=== PATIENT | male | born 1945 | race Two or more races ===

== ENCOUNTER 2025-02-22 16:16 | Inpatient (IN) | payer OTHER ==
[~2025-02-22] VITALS: Ht 182.9 cm; Wt 101.2 kg
[2025-02-22] MEDS: IV NS 0.9% 1,000 ML BAG IV ONE ×2 (17:00→18:20)
[2025-02-22 17:09] LABS: SERUM AMMONIA 94 umol/L (11-32)
[2025-02-22 17:21] LABS: LACTIC ACID 2.3 mmol/L (0.4-2.0)
[2025-02-22 17:22] LABS: ALANINE AMINOTRANSFERASE 14 U/L (12-78); ALBUMIN 3.2 g/dL (3.4-5.0); ALCOHOL, BLOOD < 3 mg/dL (0-10); ALKALINE PHOSPHATASE 98 U/L (46-116); ASPARTATE AMINOTRANSFERASE 8 U/L (15-37); BASOPHILS % (AUTO) 0.2 % (0.0-2.0); BILIRUBIN,DIRECT 0.2 mg/dL (0.0-0.2); BILIRUBIN,TOTAL 0.5 mg/dL (0.2-1.0); CALCIUM, SERUM 7.8 mg/dL (8.5-10.1); CHLORIDE 91 mmol/L (98-107); EOSINOPHILS % (AUTO) 0.3 % (0.0-6.0); GLUCOSE 199 mg/dL (74-106); HEMATOCRIT 41 % (39-51); HEMOGLOBIN 13.6 g/dL (13.5-17.5); LYMPHOCYTES # (AUTO) 0.9 K/uL (0.8-4.8); MEAN CORPUSCULAR HEMOGLOBIN 29 PG (26.0-33.0); MEAN CORPUSCULAR HGB CONC 33 g/dl (31.0-36.0); MEAN CORPUSCULAR VOLUME 88 fL (80-96); MONOCYTES # (AUTO) 0.8 K/uL (0.1-1.30); MONOCYTES % (AUTO) 5.9 % (2.0-12.0); NEUTROPHILS # (AUTO) 11.1 K/uL (1.8-8.9); NEUTROPHILS % (AUTO) 86.6 % (43.0-81.0); PLATELET COUNT (AUTO) 243 K/uL (150-450); RED BLOOD CELL COUNT(AUTO) 4.63 MIL/uL (4.5-6.0); RED CELL DISTRIBUTION WIDTH 14.5 % (11.5-15.0); SALICYLATE 2.8 mg/dL (2.8-20.0); SODIUM SERUM 138 mmol/L (136-145); TOTAL PROTEIN, SERUM 7.5 g/dL (6.4-8.2); WHITE BLOOD COUNT (AUTO) 12.8 K/uL (4.3-11.0)
[2025-02-22 17:26] LABS: ACETAMINOPHEN 0 ug/ml (10-30)
[2025-02-22 17:28] LABS: CARBON DIOXIDE 3 mmol/L (21-32); POTASSIUM 8.6 mmol/L (3.5-5.1)
[2025-02-22 17:29] LABS: CREATININE 38.4 mg/dL (0.6-1.3); INR 1.19 (0.91-1.10); PARTIAL THROMBOPLASTIN TIME 31.9 SEC (24.3-34.3); PROTHROMBIN TIME 12.5 SECS (9.2-11.1); UREA NITROGEN, BLOOD 286 mg/dL (7-18)
[2025-02-22 17:30] LABS: APPEARANCE,URINE CLEAR (CLEAR); BILIRUBIN,URINE NEGATIVE (NEGATIVE); BLOOD, URINE 3+ Ery/uL (NEGATIVE); COLOR,URINE YELLOW (YELLOW); KETONES,URINE NEGATIVE (NEGATIVE); LEUKOCYTE ESTERASE ,URINE NEGATIVE (NEGATIVE); NITRITE, URINE NEGATIVE (NEGATIVE); PROTEIN,URINE NEGATIVE (NEGATIVE); UGLUCOSE NEGATIVE (NEGATIVE); UROBILINOGEN,URINE 0.2 EU/dL (0.2)
[2025-02-22 17:37] LABS: ADD URINE CULTURE NO; BACTERIA,URINE None seen /HPF (None Seen); RBC,URINE 51-80 /HPF (0-2); SQUAMOUS EPITHELIAL CELL,UR 0-2 /HPF (None Seen); WBC,URINE 0-2 /HPF (0-3)
[2025-02-22] MEDS ORDERED: SODIUM BICARBONATE SYR 50 MEQ/50 ML DISP.SYRIN ONE ×2 (17:44→18:19)
[2025-02-22] MEDS ORDERED: SODIUM ZIRCONIUM CYCLOSILICATE 10 GM POWD.PACK ONE (17:44)
[2025-02-22 17:49] LABS: AMPHETAMINE, URINE NEGATIVE (NEGATIVE); BARBITURATE, URINE NEGATIVE (NEGATIVE); BENZODIAZEPINE, URINE NEGATIVE (NEGATIVE); CANNABINOID, URINE NEGATIVE (NEGATIVE); COCCAINE, URINE NEGATIVE (NEGATIVE); OPIATE, URINE NEGATIVE (NEGATIVE); PHENCYCLIDINE SCREEN,URINE NEGATIVE (NEGATIVE)
[2025-02-22] MEDS: SODIUM BICARBONATE SYR 50 MEQ/50 ML DISP.SYRIN IV ONE ×2 (18:00→18:29)
[2025-02-22 18:04] LABS: ABG BASE EXCESS -21.6 mmol/L (-2.0-3.0); ABG OXYGEN SATURATION 90.6 % (94.0-98.0); ABG PCO2 19.1 mmHg (35.0-48.0); ABG PH 7.112 (7.350-7.450); ABG PO2 75.5 mmHg (83.0-108.0); ABG TOTAL HEMOGLOBIN 13.5 G/dL (13.5-17.5); COHb 0.3 % (0.5-1.5); MetHb 0.6 % (0.0-1.5); O2Hb 89.8 % (94.0-97.0); SITE, ABG LEFT RADIAL
[2025-02-22 18:12] LABS: CALCIUM, SERUM 7.7 mg/dL (8.5-10.1); CHLORIDE 94 mmol/L (98-107); GLUCOSE 206 mg/dL (74-106); SODIUM SERUM 138 mmol/L (136-145)
[2025-02-22 18:17] LABS: POTASSIUM 8.2 mmol/L (3.5-5.1)
[2025-02-22 18:18] LABS: CARBON DIOXIDE 4 mmol/L (21-32); CREATININE 36.2 mg/dL (0.6-1.3); UREA NITROGEN, BLOOD 273 mg/dL (7-18)
[2025-02-22] MEDS: SODIUM ZIRCONIUM CYCLOSILICATE 10 GM POWD.PACK PO ONE (18:20)
[2025-02-22] MEDS: CEFEPIME 1 GM in IV D5W 50 ML IV ONE (18:29)
[2025-02-22] MEDS ORDERED: CALCIUM CHLORIDE 1,000 MG/10 ML DISP.SYRIN ONE (18:34)
[2025-02-22] MEDS ORDERED: INSULIN REGULAR, HUMAN 100 UNIT/ML 10 ML VIAL ONE (18:35)
[2025-02-22] MEDS ORDERED: DEXTROSE 50%-WATER 50 ML DISP.SYRIN ONE (18:35)
[2025-02-22] MEDS: CALCIUM CHLORIDE 1,000 MG/10 ML DISP.SYRIN IV ONE (18:50)
[2025-02-22] MEDS: DEXTROSE 50%-WATER 50 ML DISP.SYRIN IV ONE (18:50)
[2025-02-22] MEDS: INSULIN REGULAR, HUMAN 100 UNIT/ML 10 ML VIAL IV ONE (18:50)
[2025-02-22 19:38] LABS: EOSINOPHILS % (MANUAL) 1 % (0-4); LYMPHOCYTES % (MANUAL) 5 % (16-48); MONOCYTES % (MANUAL) 8 % (0-11.0); NEUTROPHILS % (MANUAL) 86 (42-76); PLATELET ESTIMATE ADEQUATE
[2025-02-22 19:39] LABS: ANISOCYTOSIS 1+
[2025-02-22] MEDS ORDERED: MAG HYDROX/AL HYDROX/SIMETH 30 ML UDC PO PRN (20:30)
[2025-02-22] MEDS ORDERED: ONDANSETRON HCL/PF 4 MG/2 ML VIAL IVP PRN (20:30)
[2025-02-22] MEDS ORDERED: MAGNESIUM HYDROXIDE 30 ML UDC PO PRN (20:30)
[2025-02-22] MEDS ORDERED: LACTULOSE UDC 200 G in SODIUM CHLORIDE IRRIG SOLUTION 400 ML IR SCH (20:30)
[2025-02-22] MEDS ORDERED: ACETAMINOPHEN 325 MG TABLET PO PRN (20:30)
[2025-02-22] MEDS ORDERED: CEFEPIME 1 GM in IV D5W 50 ML IV ONE (21:00)
[2025-02-22] MEDS ORDERED: DEXTROSE 50%-WATER 50 ML DISP.SYRIN IV PRN (21:00)
[2025-02-22 21:12] VITALS: BP 109/49; O2SAT 95
[2025-02-22] MEDS: SODIUM BICARBONATE SYR 50 MEQ/50 ML DISP.SYRIN ONE (21:24)
[2025-02-22] MEDS: Sodium Bicarbonate 100 MEQ in IV D5/0.45 NACL 1,000 ML IV SCH (21:47)
[2025-02-22 22:00] VITALS: BP 125/56; O2SAT 98
[2025-02-22 22:36] LABS: CARBON DIOXIDE 11 mmol/L (21-32); CHLORIDE 109 mmol/L (98-107); GLUCOSE 130 mg/dL (74-106); MAGNESIUM 3.3 mg/dL (1.8-2.4); SODIUM SERUM 148 mmol/L (136-145)
[2025-02-22 22:44] LABS: CREATININE 24.5 mg/dL (0.6-1.3); UREA NITROGEN, BLOOD 233 mg/dL (7-18)
[2025-02-22 23:00] VITALS: BP 149/60; O2SAT 98
[2025-02-23] VITALS (26 sets, daily range): BP systolic 121–191; BP diastolic 59–90; TEMP 98–98.6; O2SAT 94–97
[2025-02-23] MEDS: BLOOD SUGAR DIAGNOSTIC 1 EACH STRIP IN SCH ×2 (00:41→17:46)
[2025-02-23] MEDS: INSULIN REGULAR, HUMAN 100 UNIT/ML 3 ML VIAL SQ PRN ×2 (00:48→17:47)
[2025-02-23] MEDS: LACTULOSE 10 G/15 ML UDC (PYXIS) PO ONE (00:52)
[2025-02-23 03:20] LABS: ABG BASE EXCESS -11.1 mmol/L (-2.0-3.0); ABG OXYGEN SATURATION 96.1 % (94.0-98.0); ABG PCO2 22.1 mmHg (35.0-48.0); ABG PH 7.356 (7.350-7.450); ABG PO2 91.9 mmHg (83.0-108.0); ABG TOTAL HEMOGLOBIN 14.4 G/dL (13.5-17.5); COHb 0.3 % (0.5-1.5); MetHb 0.3 % (0.0-1.5); O2Hb 95.5 % (94.0-97.0); SITE, ABG RIGHT RADIAL
[2025-02-23 04:45] LABS: BASOPHILS % (AUTO) 0.2 % (0.0-2.0); HEMATOCRIT 42 % (39-51); HEMOGLOBIN 14.2 g/dL (13.5-17.5); LYMPHOCYTES # (AUTO) 0.2 K/uL (0.8-4.8); MEAN CORPUSCULAR HEMOGLOBIN 29 PG (26.0-33.0); MEAN CORPUSCULAR HGB CONC 34 g/dl (31.0-36.0); MEAN CORPUSCULAR VOLUME 85 fL (80-96); MONOCYTES # (AUTO) 0.5 K/uL (0.1-1.30); MONOCYTES % (AUTO) 7.1 % (2.0-12.0); NEUTROPHILS % (AUTO) 89.7 % (43.0-81.0); PLATELET COUNT (AUTO) 186 K/uL (150-450); RED BLOOD CELL COUNT(AUTO) 4.89 MIL/uL (4.5-6.0); RED CELL DISTRIBUTION WIDTH 13.9 % (11.5-15.0); WHITE BLOOD COUNT (AUTO) 6.7 K/uL (4.3-11.0)
[2025-02-23 05:00] LABS: SERUM AMMONIA 22 umol/L (11-32)
[2025-02-23 05:04] LABS: CALCIUM, SERUM 8.6 mg/dL (8.5-10.1); CARBON DIOXIDE 14 mmol/L (21-32); CHLORIDE 115 mmol/L (98-107); GLUCOSE 186 mg/dL (74-106); MAGNESIUM 3.2 mg/dL (1.8-2.4)
[2025-02-23 05:10] LABS: CREATININE 14.8 mg/dL (0.6-1.3); PHOSPHORUS 9.6 mg/dL (2.5-4.9); SODIUM SERUM 157 mmol/L (136-145); UREA NITROGEN, BLOOD 186 mg/dL (7-18)
[2025-02-23] MEDS: IV 1/2NS 1000 ML 1,000 ML IV SCH (06:12)
[2025-02-23] MEDS: POTASSIUM CL. PREMIX PERIPHER. 50 ML IV SCH (06:13)
[2025-02-23] MEDS: IV NS 0.9% 250 ML IV PRN (06:27)
[2025-02-23] MEDS: PANTOPRAZOLE 40 MG VIAL IV SCH (08:49)
[2025-02-23] MEDS ORDERED: LACTULOSE UDC 200 G in SODIUM CHLORIDE IRRIG SOLUTION 400 ML IR SCH (09:00)
[2025-02-23 09:32] LABS: CALCIUM, SERUM 8.8 mg/dL (8.5-10.1); CARBON DIOXIDE 16 mmol/L (21-32); CHLORIDE 121 mmol/L (98-107); GLUCOSE 170 mg/dL (74-106); SODIUM SERUM 153 mmol/L (136-145)
[2025-02-23 09:34] LABS: CREATININE 10.9 mg/dL (0.6-1.3); UREA NITROGEN, BLOOD 164 mg/dL (7-18)
[2025-02-23 12:23] LABS: CALCIUM, SERUM 8.3 mg/dL (8.5-10.1); CARBON DIOXIDE 17 mmol/L (21-32); CHLORIDE 122 mmol/L (98-107); GLUCOSE 250 mg/dL (74-106); POTASSIUM 3.2 mmol/L (3.5-5.1)
[2025-02-23] MEDS: hydrALAZINE HCL 50 MG TABLET PO SCH (12:25)
[2025-02-23 12:26] LABS: CREATININE 7.6 mg/dL (0.6-1.3); SODIUM SERUM 159 mmol/L (136-145); UREA NITROGEN, BLOOD 141 mg/dL (7-18)
[2025-02-23] MEDS: IV D5W 500 ML IV ONE (15:06)
[2025-02-23] MEDS ORDERED: AMLO-212 PO (15:17)
[2025-02-23] MEDS ORDERED: LOSA25TA27 PO (15:17)
[2025-02-23] MEDS ORDERED: ATOR20TA PO (15:17)
[2025-02-23] MEDS ORDERED: HYDR25TA4 PO (15:17)
[2025-02-23] MEDS ORDERED: POTA10TA21 PO (15:17)
[2025-02-23] MEDS ORDERED: ATEN25TA PO (15:17)
[2025-02-23 16:31] LABS: CALCIUM, SERUM 7.9 mg/dL (8.5-10.1); CREATININE 5.6 mg/dL (0.6-1.3)
[2025-02-23 16:37] LABS: POTASSIUM 2.7 mmol/L (3.5-5.1)
[2025-02-23] MEDS: POTASSIUM CHLORIDE 20 MEQ POWDER PACKET PO ONE (17:46)
[2025-02-23] MEDS: METOPROLOL TARTRATE 25 MG TABLET PO SCH (17:46)
[2025-02-23] MEDS: Z GUARD REMEDY 4 OZ OINT TP PRN (20:15)
[2025-02-23] MEDS: CEFEPIME 1 GM in IV D5W 50 ML IV SCH (20:15)
[2025-02-23 21:54] LABS: CALCIUM, SERUM 7.9 mg/dL (8.5-10.1); CREATININE 5.5 mg/dL (0.6-1.3)
[2025-02-23 22:02] LABS: POTASSIUM 2.8 mmol/L (3.5-5.1)
[2025-02-23] MEDS: LORAZEPAM INJ 2 MG/ML VIAL IV ONE (23:13)
[2025-02-24] VITALS (26 sets, daily range): BP systolic 126–188; BP diastolic 61–102; TEMP 98.5–98.6; O2SAT 90–100
[2025-02-24 00:06] LABS: CALCIUM, SERUM 8.1 mg/dL (8.5-10.1); POTASSIUM 3.2 mmol/L (3.5-5.1)
[2025-02-24] MEDS: POTASSIUM CHLORIDE 20 MEQ TAB.PRT.SR PO ONE (00:46)
[2025-02-24 02:37] LABS: CALCIUM, SERUM 8.1 mg/dL (8.5-10.1); CREATININE 2.6 mg/dL (0.6-1.3); POTASSIUM 2.9 mmol/L (3.5-5.1)
[2025-02-24] MEDS: IV D5/0.45 NACL 1,000 ML IV SCH (03:06)
[2025-02-24] MEDS: POTASSIUM CL. PREMIX PERIPHER. 50 ML IV SCH ×2 (03:19→12:11)
[2025-02-24 06:19] LABS: BASOPHILS % (AUTO) 0.1 % (0.0-2.0); EOSINOPHILS % (AUTO) 0.1 % (0.0-6.0); HEMATOCRIT 45 % (39-51); LYMPHOCYTES # (AUTO) 0.9 K/uL (0.8-4.8); LYMPHOCYTES % (AUTO) 7.5 % (20.0-44.0); MEAN CORPUSCULAR HEMOGLOBIN 29 PG (26.0-33.0); MEAN CORPUSCULAR HGB CONC 34 g/dl (31.0-36.0); MEAN CORPUSCULAR VOLUME 86 fL (80-96); MONOCYTES # (AUTO) 1.5 K/uL (0.1-1.30); MONOCYTES % (AUTO) 12.5 % (2.0-12.0); NEUTROPHILS # (AUTO) 9.4 K/uL (1.8-8.9); NEUTROPHILS % (AUTO) 79.8 % (43.0-81.0); PLATELET COUNT (AUTO) 209 K/uL (150-450); RED BLOOD CELL COUNT(AUTO) 5.18 MIL/uL (4.5-6.0); RED CELL DISTRIBUTION WIDTH 13.9 % (11.5-15.0); WHITE BLOOD COUNT (AUTO) 11.7 K/uL (4.3-11.0)
[2025-02-24 06:32] LABS: BILIRUBIN,TOTAL 0.7 mg/dL (0.2-1.0); CALCIUM, SERUM 8.3 mg/dL (8.5-10.1); CREATININE 2.4 mg/dL (0.6-1.3); MAGNESIUM 2.5 mg/dL (1.8-2.4); POTASSIUM 3.1 mmol/L (3.5-5.1); TOTAL PROTEIN, SERUM 7.3 g/dL (6.4-8.2)
[2025-02-24] MEDS: PANTOPRAZOLE 40 MG TABLET.DR PO SCH (09:00)
[2025-02-24] MEDS ORDERED: hydrALAZINE HCL IV 20 MG VIAL IV PRN (09:30)
[2025-02-24] MEDS ORDERED: POTASSIUM CHLORIDE 20 MEQ TAB.PRT.SR PO SCH (10:30)
[2025-02-24] MEDS: NITROGLYCERIN 30 GM TUBE TP SCH (11:06)
[2025-02-24 11:28] LABS: CALCIUM, SERUM 8.1 mg/dL (8.5-10.1); CREATININE 1.7 mg/dL (0.6-1.3); POTASSIUM 3.2 mmol/L (3.5-5.1)
[2025-02-24] MEDS: IV D5/0.45 NACL 1,000 ML IV PRN (13:21)
== END 2025-02-24 18:27 | disposition short-term general hospital (02) | DRG 871 ==
LOC: ER 16:19 → UNDOADMIN 19:33 → MED 19:33 → ICU 20:17
PROC: 05H933Z Insertion of Infusion Device into Right Brachial Vein, Percutaneous Approach (ICD-10-PCS; principal; 2025-02-23)
DX: A41.9 Sepsis, unspecified organism (principal); G92.8 Other toxic encephalopathy; N17.9 Acute kidney failure, unspecified; E87.20 Acidosis, unspecified; N13.30 Unspecified hydronephrosis; E72.20 Disorder of urea cycle metabolism, unspecified; E86.0 Dehydration; E11.9 Type 2 diabetes mellitus without complications; E87.5 Hyperkalemia; I10 Essential (primary) hypertension; Z66 Do not resuscitate; E78.5 Hyperlipidemia, unspecified; R65.20 Severe sepsis without septic shock
CPT/HCPCS: 36415; 36600; 70450-TC; 71045-TC; 80048-TC; 80053-TC; 80076-TC; 81001; 82140-TC; 82550-TC; 82553; 82803-TC; 82962-TC; 83605-TC; 83735-TC; 84100-TC; 84443-TC; 84484-TC; 85025-TC; 85730-TC; 87040-TC; 87081-TC; 87086-TC; 92526; 92611-TC; 97110-TC; 97116-TC; 97530-TC; A4217; A4223; G0378; G0480; J0692; J1815; J2060; J2470; J3480; J3490; J7030; J7050; J7060